=== PATIENT | male | born 1990 | race Two or more races ===

== ENCOUNTER 2018-01-30 00:38 | Emergency (ER) | payer OTHER ==
[2018-01-30 01:06] VITALS: BMI 25.7
[2018-01-30] MEDS ORDERED: FAMOTIDINE 20 MG/50 ML IVPB 20 MG/50 ML MG IVPB ONE ×2 (01:25→01:36)
[2018-01-30] MEDS ORDERED: methylPREDNISolone NA SUCC 40 MG/1 ML VIAL IVPUSH ONE (01:25)
[2018-01-30] MEDS ORDERED: methylPREDNISolone NA SUCC 125 MG/2 ML VIAL IVPB ONE (01:26)
[2018-01-30] MEDS ORDERED: methylPREDNISolone NA SUCC 125 MG/2 ML VIAL ONE ×2 (01:35→01:36)
--- NOTE | 2018-01-30 01:44 | PDOC ---
History of Present Illness - General Chief Complaint: Allergic Reaction Stated Complaint: ALLERGIC REACTION - History of Present Illness Initial Comments: 01/30/18 01:35 26 yo M with no significant pmh who p/w flushed skin, SOB, and lightheadedness. 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 Patient ingested one pill, and ten minutes later developed SOB, tongue heaviness, red diffuse skin, lightheadedness, and tingling in fingertips. Symptoms stable. Patient reports similiar onset of symptoms in past, with NSAID use. Does not own an Epi-Pen. Patient recently prescribed antibiotic for dental nancy/extraction. Patient denies N/V, F,C, CP, cough, wheezing, urinary complaints, abdominal pain , hematuria, BPR, diarrhea, constipation, lightheadedness, weakness, sensory changes. PMHx: as noted above ROS: as noted SHx: Denies etoh, tobacco, IVDA Allergies: NSAIDs, Amoxicillin- airway difficulty Past History - Past Medical History Allergies/Adverse Reactions: Allergies Allergy/AdvReac Type Severity Reaction Status Date / Time NSAIDS (Non-Steroidal Allergy Verified 01/30/18 01:07 Anti-Inflamma Home Medications: Ambulatory Orders EPINEPHrine (EPI-PEN 0.3MG) [Epipen 0.3MG -] 0.3 mg IM ASDIR #2 pens 01/30/18 - Suicide/Smoking/Psychosocial Hx Smoking History: Never smoked Have you smoked in the past 12 months: No Information on smoking cessation initiated: No Hx Alcohol Use: No Drug/Substance Use Hx: No *Physical Exam - Vital Signs Last Vital Signs Temp Pulse Resp BP Pulse Ox 99.2 F 109 H 24 H 84/62 L 92 L 01/30/18 00:38 01/30/18 00:38 01/30/18 00:38 01/30/18 00:38 01/30/18 00:38 Moderate Sedation - Procedure Monitoring Vital Signs: Procedure Monitoring Vital Signs Temperature 99.2 F 01/30/18 00:38 Pulse Rate 109 H 01/30/18 00:38 Respiratory Rate 24 H 01/30/18 00:38 Blood Pressure 84/62 L 01/30/18 00:38 O2 Sat by Pulse Oximetry (%) 92 L 01/30/18 00:38 Medical Decision Making - Medical Decision Making 01/30/18 01:38 26 yo M with no significant pmh who p/w flushed skin, SOB, and lightheadedness. BP 84/62, RR 24, HR 109, Temp 99.2, O2 92 % RA, A&Ox3. Patient with diffuse skin flushing. Likely experienced acute anaphylaxis vs acute hypersensitivity reaction. No evidence of angioedmea, airway compromise, mucosal edema ( palatal or tongue swelling), wheezing, inability to tolerate oral secretions, hoarseness , muffled voice, GI type symptoms, or other systemic s/s. ED Course: Diphehydramine, Famotidine, Methylprednisilone, NS 2 L Will observe in ED. BP improved 109/70. hypotension improved Patient counseled on Epi-Pen use and return precautions for biphaisc rxn. Advised to f/u with cashier checker/retail security professional. 01/30/18 06:00 Patient symptoms resolved. Stable for d/c. *DC/Admit/Observation/Transfer Diagnosis at time of Disposition: Anaphylaxis Qualifiers: Encounter type: initial encounter Qualified Code(s): T78.2XXA - Anaphylactic shock, unspecified, initial encounter - Discharge Dispostion Condition at time of disposition: Stable - Prescriptions Prescriptions: EPINEPHrine (EPI-PEN 0.3MG) [Epipen 0.3MG -] 0.3 mg IM ASDIR #2 pens - Referrals Referrals: Liu Fu MD [Primary Care Provider] - - Patient Instructions Printed Discharge Instructions: DI for Anaphylaxis, DI for Adverse Drug Reaction -- Allergic Additional Instructions: Please return to the emergency department with any new or worsening symptoms or concerns. Please follow up with your primary care physician within 72 hours. Please use Epi-Pen injector as prescribed. Please f/u with cashier checker. - Post Discharge Activity - Attestations Physician Attestion: 01/30/18 01:46 I attest to the information provided in this note.
[2018-01-30] MEDS ORDERED: SODIUM CHLORIDE 1,000 ML IV STA (01:47)
--- NOTE | 2018-01-30 02:44 | PDOC ---
Attending Attestation - Resident Resident Name: Pasquale Fuentes - ED Attending Attestation I have performed the following: I have examined & evaluated the patient, The case was reviewed & discussed with the resident, I agree w/resident's findings & plan, Exceptions are as noted - HPI HPI: 01/30/18 02:41 Here with acute onset of diffuse flush, sob shortly after taking an amoxicillin pill. - Physicial Exam PE: 01/30/18 02:42 agree with exam as documented by resident - Medical Decision Making 01/30/18 02:42 possible allergic rxn to abx medicate with steroids, famotidine, benadryl observe for recurrence of symptoms dispo per clinical course 01/30/18 06:08 Resolution of symptoms w/o recurrence, will send Rx to pharmacy of choice dc
[2018-01-30 06:41] VITALS: BP 121/82; PULSE 92; TEMP 98
== END 2018-01-30 06:18 | disposition home or self-care (01) ==
LOC: EDBD 00:38 → JER 00:38
PROC: 3E033GC Introduction of Other Therapeutic Substance into Peripheral Vein, Percutaneous Approach (ICD-10-PCS; principal; 2018-01-30)
PROC: 3E0337Z Introduction of Electrolytic and Water Balance Substance into Peripheral Vein, Percutaneous Approach (ICD-10-PCS; 2018-01-30)
DX: T78.2XXA Anaphylactic shock, unspecified, initial encounter (principal)
CPT/HCPCS: 99283-25; J7030

== ENCOUNTER 2018-02-11 03:07 | Emergency (ER) | payer OTHER ==
[2018-02-11 03:20] VITALS: BP 135/80; PULSE 99; TEMP 97.6; BMI 27.1
[2018-02-11] MEDS ORDERED: FAMOTIDINE 20 MG/50 ML IVPB 20 MG/50 ML MG IVPB ONE ×2 (03:29→03:38)
[2018-02-11] MEDS ORDERED: methylPREDNISolone NA SUCC 125 MG/2 ML VIAL IVPUSH ONE (03:33)
[2018-02-11] MEDS ORDERED: methylPREDNISolone NA SUCC 125 MG/2 ML VIAL ONE (03:38)
--- NOTE | 2018-02-11 03:44 | PDOC ---
History of Present Illness - General Chief Complaint: Allergic Reaction Stated Complaint: ALLERGIC RX Time Seen by Provider: 02/11/18 03:11 - History of Present Illness Initial Comments: Lauro Calixto is a 27yo otherwise healthy man who presents to the ED tonight with concern for allergic reaction. He has a history of anaphylactic reaction with NSAIDs in the past and recently with amoxicillin. He reports that each time , the reaction started with skin and eye redness, which he started experiencing at home tonight. Mr Calixto states that he was feeling well today, was up relatively late due to family visiting, and went to sleep normally. He woke up feeling odd, and he noticed that his eyes and skin were red. He woke up his brother and they came over to the ED immediately. During his last reaction, he felt lightheaded and had very low blood pressure, so although he did not have those symptoms today he was concerned that his condition would worsen. Mr Calixto denies taking any medications today. He additionally denies any new foods, soaps, detergents, lotions, or new clothes. He is unaware of any new exposures today at all. He denies any current shortness of breath, throat tightness, wheezing, cough, or mouth/tongue/throat swelling. Past History - Past Medical History Allergies/Adverse Reactions: Allergies Allergy/AdvReac Type Severity Reaction Status Date / Time NSAIDS (Non-Steroidal Allergy Verified 02/11/18 03:18 Anti-Inflamma Home Medications: Ambulatory Orders EPINEPHrine (EPI-PEN 0.3MG) [Epipen 0.3MG -] 0.3 mg IM ASDIR #2 pens 01/30/18 Prednisone [Prednisone 50 MG TABLETS] 50 mg PO DAILY #5 tablet 01/30/18 Prednisone [Prednisone 50 MG TABLETS] 50 mg PO DAILY #5 tablet 02/11/18 - Suicide/Smoking/Psychosocial Hx Smoking History: Never smoked Have you smoked in the past 12 months: No Information on smoking cessation initiated: No Hx Alcohol Use: No Drug/Substance Use Hx: No Review of Systems - Review of Systems Comments:: General: No fevers, no chills, no weight or appetite change, no malaise HEENT: No changes in vision, no changes in hearing, no congestion, no sore throat CV: No chest pain, no palpitations, no LE edema Pulm: No SOB, no cough, no wheezing GI: No nausea or vomiting, no change in bowel habits, no melena : No frequency, no urgency, no dysuria Musc: No back pain, no joint swelling, no recent injury Skin: No rash, no lesions. +flushing, see HPI Endo: No excessive thirst, no heat/cold intolerance Heme: No unusual bruising or bleeding, no swollen glands Neuro: No syncope, no numbness/tingling, no focal weakness Vasc: No claudication Psych: No recent change in mood, no SI or HI *Physical Exam - Vital Signs Last Vital Signs Temp Pulse Resp BP Pulse Ox 97.6 F 99 H 20 135/80 97 02/11/18 03:18 1218 03:18 02/11/18 03:18 02/11/18 03:18 02/11/18 03:18 - Physical Exam Comments: General: Comfortable, no acute distress HEENT: PERRL, EOMI, b/l injected sclera, MMM, voice normal, no tonsillar or tongue swelling, normal neck ROM, no LAD Cards: RRR, no murmur appreciated Pulm: Comfortable on room air, clear to auscultation bilaterally Abd: Soft, nontender, nondistended Ext: Atraumatic. No LE edema. ROM intact. Strength 5/5 and equal bilaterally Vasc: Extremities WWP. Palpable radial and pedal pulses bilaterally Skin: Diffusely erythematous, blanches with pressure Neuro: A&Ox3, CN grossly intact, normal speech, motor/sensory grossly intact and symmetric Psych: Mood appropriate to situation Moderate Sedation - Procedure Monitoring Vital Signs: Procedure Monitoring Vital Signs Temperature 97.6 F 02/11/18 03:18 Pulse Rate 99 H 02/11/18 03:18 Respiratory Rate 20 02/11/18 03:18 Blood Pressure 135/80 02/11/18 03:18 O2 Sat by Pulse Oximetry (%) 97 02/11/18 03:18 Medical Decision Making - Medical Decision Making 02/11/18 03:40 Marily Restrepo is a 27yo man with a PMH of allergic reaction (NSAIDs, acetaminophen, amoxicillin) who presents with diffuse skin flushing and red eyes typical of the initial symptoms of his allergic reactions. - No known source today - Diffuse erythema, no localization, indicating likely systemic response. - No airway compromise or hypotension; no indication for epi at this time - IV diphenhydramine, famotidine, methylprednisolone - Observe in ED for resolution v return of symptoms 02/11/18 05:16 - Significantly improved - Will d/c home with prednisone, lock stitch channeler f/u Seen and discussed with Dr Morales. Renu Andersen PGY1 *DC/Admit/Observation/Transfer Diagnosis at time of Disposition: Allergic reaction - Discharge Dispostion Disposition: HOME Condition at time of disposition: Stable Decision to Admit order: No - Prescriptions Prescriptions: Prednisone [Prednisone 50 MG TABLETS] 50 mg PO DAILY #5 tablet - Referrals Referrals: Liu Fu MD [Primary Care Provider] - Vernell Ghosh MD [Staff Physician] - - Patient Instructions Printed Discharge Instructions: DI for General Allergic Reactions Additional Instructions: Discharge Instructions: - You were seen in the emergency department with an allergic reaction. You were given allergy medications that improved your symptoms. Home Care: - You have been prescribed a steroid medication called prednisone. Please take this once per day until completed. - If you have minor allergic reactions at home, you may take diphenhydramine ( Benedryl) 25-50mg. This medication makes you sleepy, but it will most likely improve your symptoms. - If you have any shortness of breath or feeling of tightness in your throat, use your epi-pen right away Follow Up: - You have been referred to an environmental remediation specialist, Dr Ghosh. Try to make an appointment within the next 1-2 weeks as you might need additional testing. - Seek immediate medical care for any allergic reaction that involves the whole body, especially if you have trouble breathing, wheezing, throat tightness or throat swelling, or you are lightheaded. You can use your epi-pen and take diphenhydramine at home immediately, even before coming to the hospital. - Post Discharge Activity
--- NOTE | 2018-02-11 04:45 | PDOC ---
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 denies exacerbants. did go [place] airport to visit and group tester family member no food or environmental triggers was here last week for similar presentation, dx'd allergic reaction to amoxicilling has epi pen, improved with steroids/benadryl - Physicial Exam PE: 02/11/18 04:44 NAD, well appearing, PERRL, EOMI, +ciliary injection, MMM, airway intact, nl conjunctiva, anicteric; neck supple. lungs clear, RRR, abdomen soft nontender. POPE x4, no focal neuro deficits. No peripheral edema. +chest and neck flushing. WWP. no rash. - Medical Decision Making 02/11/18 04:45 HPI as documented VS wnl, normotensive. DDx. allergic reaction: hypersensitivity reaction, allergic reaction, anaphylaxis, hives/urticaria. drug rash. dermatitis. serum sickness. vasculitis. medication side effect. -No fevers or systemic findings, clinically well appearing. no mucosal involvement so doubt SJS/TEN. airway patent, doubt anaphylaxis or Dress syndrome. - already has epi pen from last time, has not used but knows how to. - given steroids, benadryl, pepcid with clinical improvement. VS wnl, stable, no hypotension. - instructions on avoiding triggers, rx prednisone x 3 more days, benadryl Q6-8 hr ATC x 3 days, pepcid for dual antihistamine relief. - formula clerk referrals provided. 02/11/18 04:46
== END 2018-02-11 05:50 | disposition home or self-care (01) ==
LOC: JER 03:07
PROC: 3E033GC Introduction of Other Therapeutic Substance into Peripheral Vein, Percutaneous Approach (ICD-10-PCS; principal; 2018-02-11)
DX: T78.49XA Other allergy, initial encounter (principal)
CPT/HCPCS: 96365; 96375; 99282-25

== ENCOUNTER 2018-07-29 23:04 | Emergency (ER) | payer SELFPAY, OTHER | END 2018-07-30 01:00 | disposition home or self-care (01) | LOC: JER 07-30 01:00 ==